=== PATIENT | male | born 2000 | race African-American/Black ===

== ENCOUNTER 2023-02-04 17:10 | Emergency (ER) | payer BC ==
[~2023-02-04] VITALS: Ht 180 cm; Wt 81.6 kg
--- NOTE | 2023-02-04 17:39 | ED Integumentary General ---
General Stated Complaint: BUMP ON BUTTOCKS Source: patient Exam Limitations: no limitations (NARA HARRIS) History of Present Illness Date Seen by Provider: Feb 04, 2023 Time Seen by Provider: 17:34 Initial Comments Patient is a 22-year-old male who presents to the ED for a nodule around his anus. Noticed this area 2 days ago. Denies of any pain but felt a hard pea- sized nodule. Patient denies of any rectal bleeding, discharge from the rectum, pain with urination frequent urination, penile discharge, abdominal pain, vomiting, diarrhea. Denies of any increase in size. (NARA HARRIS) Allergies and Home Medications Allergies Coded Allergies: No Known Drug Allergies (Unverified , 02/04/23) Patient Home Medication List Home Medication List Reviewed: Yes (NARA HARRIS) Review of Systems Review of Systems Constitutional: No chills EENTM: No ear pain, No blurred vision, No double vision, No mouth pain, No mouth swelling Respiratory: No cough Cardiovascular: No no symptoms reported Gastrointestinal: No abdominal pain, No diarrhea, No nausea, No vomiting Genitourinary: No decreased output, No discharge Musculoskeletal: No back pain, No joint pain Skin: No change in color Psychiatric/Neurological: Denies Headache, Denies Numbness (NARA HARRIS) All Other Systems Reviewed Negative Unless Noted: Yes (NARA HARRIS) Physical Exam Vital Signs Vital Signs - First Documented 02/04/23 17:35 Temp 35.9 Pulse 73 Resp 18 B/P (MAP) 139/102 (114) Pulse Ox 99 (AUDI BURNS MD) Vital Signs Capillary Refill : (NARA HARRIS) General Appearance: WD/WN, no apparent distress HEENT: PERRL/EOMI, normal ENT inspection, TMs normal, pharynx normal Neck: non-tender, full range of motion Cardiovascular: regular rate, rhythm, no edema, no gallop, no JVD Respiratory: chest non-tender, lungs clear, normal breath sounds Gastrointestinal: normal bowel sounds, non tender, soft, no organomegaly Back: normal inspection, no CVA tenderness Extremities: normal range of motion, non-tender, normal inspection Neurologic/Psychiatric: digital manager II-XII nml as tested, no motor/sensory deficits, alert, normal mood/affect, oriented x 3 Skin: other (Pea-sized free movable nodule near the right buttock around 4 cm away from the anus. No anal tenderness, mucus, hemorrhoid) (NARA HARRIS) Progress/Results/Core Measures Results/Orders Vital Signs/I&O 02/04/23 02/04/23 17:35 17:55 Temp 35.9 35.9 Pulse 73 73 Resp 18 18 B/P (MAP) 139/102 (114) 139/102 Pulse Ox 99 99 (AUDI BURNS MD) Departure Communication (PCP) Patient is a 22-year-old male who presents ED for a small nodule around his anus. Noticed this area 2 days ago. No increase in size. Denies any pain. He reports that he does have anal intercourse. Denies of any purulent drainage, fever, abdominal pain, bloody stools. Denies receiving HPV vaccine. Denies of any pain with urination frequent urination. Differential diagnosis, cyst, perianal abscess, lymphadenopathy. On exam does have a hard pea-sized nodule about 3 to 4 cm away from the anus. There is no evidence of obvious infection. No pain on palpation. There is no surrounding redness or swelling. There is no palpable mass in the rectum around the anal area suggesting cancer. At this time recommend continue monitoring. Suggest follow-up your PCP in a few days for reevaluation so they can continue monitoring. If this does increase in size, pain fever to return back to ED. May need a colonoscopy for further evaluation if any rectal bleeding. Provided general surgery outpatient follow- up. (NARA HARRIS) Impression Primary Impression: Cyst Disposition: 01 HOME, SELF-CARE Condition: Stable Departure-Patient Inst. Decision time for Depature: 17:38 (NARA HARRIS) Referrals: NO,LOCAL PHYSICIAN (PCP) Primary Care Physician KINSEY JACOBS MD Patient Instructions: Epidermal Cyst ATTENDING PHYSICIAN NOTE: I was physically present in the ER as attending physician during the care of this patient. I did not personally interview or examine this patient, and I was not otherwise directly involved in the decision-making or delivery of care for this patient. (AUDI BURNS MD) NARA HARRIS Feb 04, 2023 17:39 AUDI BURNS MD Feb 04, 2023 19:24
[2023-02-04 17:55] VITALS: BP 139/102
== END 2023-02-04 17:55 | disposition home or self-care (01) ==
LOC: ER 17:16
DX: K62.89 Other specified diseases of anus and rectum (principal)
CPT/HCPCS: 99281

== ENCOUNTER 2023-03-12 15:50 | Emergency (ER) | payer BC ==
[~2023-03-12] VITALS: Ht 180.3 cm; Wt 79.3 kg
--- NOTE | 2023-03-12 16:04 | ED General ---
General Chief Complaint: General Problems/Pain Stated Complaint: WANTING BLOOD WORK DONE Source of Information: Patient Exam Limitations: No Limitations History of Present Illness Date Seen by Provider: Mar 12, 2023 Time Seen by Provider: 15:51 Initial Comments 22-year-old male presents to the emergency department today requesting blood work. When asked what he specifically looking for he states "just to check up on myself." He states he has been sexually active. He is not having any symptoms. He does not want any specific STD testing just wants basic labs to "check on myself." All other systems reviewed and negative except documented per HPI. Voice recognition software was used to help create this chart Allergies and Home Medications Allergies Coded Allergies: No Known Drug Allergies (Unverified , 02/04/23) Patient Home Medication List Home Medication List Reviewed: Yes Review of Systems Review of Systems Constitutional: see HPI Past Tbhassi-Yeyjtq-Ovmoni Hx Patient Social History Tobacco Use?: No Use of E-Cig and/or Vaping dev: No Substance use?: No Alcohol Use?: No Past Medical History Surgery/Hospitalization HX: N/A Physical Exam Vital Signs Capillary Refill : Height, Weight, BMI Height: '" Weight: lbs. oz. kg; 25.00 BMI Method: General Appearance: No Apparent Distress, WD/WN HEENT: Normal ENT Inspection, Pharynx Normal Neck: Normal Inspection, Non Tender, Supple Respiratory: Chest Non Tender, Lungs Clear, Normal Breath Sounds, No Accessory Muscle Use Cardiovascular: Regular Rate, Rhythm, No Murmur, Normal Peripheral Pulses Gastrointestinal: Normal Bowel Sounds, No Organomegaly, Non Tender, Soft Extremity: Normal Capillary Refill, Normal Inspection, Normal Range of Motion Neurologic/Psychiatric: Alert, Oriented x3 Progress/Results/Core Measures Suspected Sepsis SIRS Temperature: Pulse: Respiratory Rate: Blood Pressure / Mean: Results/Orders Vital Signs/I&O Capillary Refill : Departure Communication (Admissions) Advised patient there is no indication for emergent lab work at this time as he has no specific concerns. Declines specific STI testing today. Did advise that he can go to the health department or [facility] walk-in clinic. Impression Primary Impression: Encounter for medical screening examination Disposition: HOME, SELF-CARE Condition: Stable Departure-Patient Inst. Referrals: NO,LOCAL PHYSICIAN (PCP/Family) Primary Care Physician Add. Discharge Instructions: Go to the health department or [facility] walk-in clinic for any non emergent testing. [facility] Address: [facility] [place] [address] Hours: Closes soon 5PM ? Opens 8AM Tue All discharge instructions reviewed with patient and/or family. Voiced understanding. VICKIE MAGAÑA DO Mar 12, 2023 16:04
[2023-03-12 16:08] VITALS: BP 141/90
== END 2023-03-12 16:09 | disposition home or self-care (01) ==
LOC: EDUNIT# 15:50 → ER 15:53
DX: Z00.00 Encounter for general adult medical examination without abnormal findings (principal)
CPT/HCPCS: 99281